=== PATIENT | male | born 1975 | race Caucasian/White ===

== ENCOUNTER → 2018-08-13 09:08 | Outpatient (CLI) | payer OTHER, SELFPAY ==
[2018-08-13 09:30] LABS: Add Manual Diff / Slide Review NO; Basophils Absolute Auto 0 /uL (0-100); Basophils Percent Auto 0.3 % (0-2); Eosinophils Absolute Auto 100 /uL (0-450); Eosinophils Percent Auto 1.6 % (2-4); Hematocrit 48.8 % (41-53); Hemoglobin 16.7 g/dL (13.5-17.5); Lymphocytes Absolute Auto 1400 /uL (1100-4500); Lymphocytes Percent Auto 27.8 % (25-40); Mean Corpuscular HGB Conc 34.2 % (30-36); Mean Corpuscular Hemoglobin 32.2 PG (26-34); Mean Corpuscular Volume 94.3 fL (80-100); Monocytes Absolute Auto 600 /uL (0-900); Monocytes Percent Auto 11.6 % (3-14); Neutrophils Absolute Auto 3000 /uL (1500-7000); Neutrophils Percent Auto 58.7 % (50-75); Platelet Count 283 X10^3/uL (150-400); Red Blood Cell Count 5.18 X10^6/uL (4.5-5.9); Red Cell Distribution Width 13.3 % (11.6-14.8); White Blood Cell Count 5.2 X10^3/uL (4.5-11.0)
[2018-08-13 10:08] LABS: Alanine Aminotransferase 34 IU/L (21-72); Albumin 4.3 g/dL (3.5-5.0); Albumin Globulin Ratio 1.4 (1.0-2.8); Alkaline Phosphatase 57 U/L (38-126); Aspartate Aminotransferase 26 IU/L (17-59); BUN Creatinine Ratio 13.6 (6-22); Bilirubin Total 1.1 mg/dL (0.2-1.3); Blood Urea Nitrogen 15 mg/dL (9-20); Calcium 9.1 mg/dL (8.4-10.2); Carbon Dioxide 28 mmol/L (22-32); Chloride 100 mmol/L (98-107); Cholesterol 138 mg/dL (140-199); Estimated Glomerular Filt Rate > 60.0 mL/min (>60); Glucose 101 mg/dL (70-100); HDL Cholesterol 41 mg/dL (40-60); HEMOLYSIS < 15 (0-50); LDL Cholesterol Calculated 46 mg/dL (<100); Potassium 4.1 mmol/L (3.4-5.1); Sodium 136 mmol/L (137-145); Total Protein 7.3 g/dL (6.3-8.2); Triglycerides 256 mg/dL (35-150)
== END ==
PROVIDERS: PCP Family Medicine; Visit Provider Family Medicine
DX: Z79.899 Other long term (current) drug therapy (principal); Z13.220 Encounter for screening for lipoid disorders; F90.0 Attention-deficit hyperactivity disorder, predominantly inattentive type
CPT/HCPCS: 36415; 80053; 80061; 85025

== ENCOUNTER 2018-08-21 19:30 | Emergency (ER) | payer OTHER, SELFPAY ==
--- NOTE | 2018-08-21 19:37 | ED.ALLEREA ---
HPI - Allergic Reaction General Chief complaint: Allergic Reaction Stated complaint: airway problem Time Seen by Provider: 08/21/18 19:34 Source: patient Mode of arrival: ambulatory Limitations: no limitations History of Present Illness HPI narrative: Patient is an otherwise healthy 42-year-old male here for evaluation of swelling to the back of his throat problems breathing. No rashes. No nausea vomiting. No new contacts. Has progressed over the past several hours. No prior history of this. Related Data Home Medications Medication Instructions Recorded Confirmed dextroamphetamine-amphetamine 20 mg PO QDAY #0 01/04/12 Previous Rx's Medication Instructions Recorded epinephrine [EpiPen 2-Morgan] 0.3 mg IM Q10M PRN #2 each 08/21/18 prednisone 40 mg PO DAILY 5 Days #10 tab 08/21/18 Allergies Allergy/AdvReac Type Severity Reaction Status Date / Time No Known Drug Allergies Allergy Verified 08/21/18 19:39 Review of Systems Constitutional Denies fatigue, Denies fever(s) and Denies headache(s) ENT Ears, Nose, Mouth, and Throat: Denies vertigo, Denies dizziness, Denies headache(s), Denies lip swelling, Denies mouth pain, Reports sore throat, Reports throat swelling and Denies tongue swelling Cardiovascular Denies chest pain and Reports dyspnea Respiratory Reports dyspnea and Denies wheezing Gastrointestinal Gastrointestinal: Denies nausea and Denies vomiting Integumentary/Breasts Denies rash Neurologic Denies behavioral changes, Denies vertigo, Denies dizziness and Denies headache(s) Psychiatric Denies behavioral changes Endocrine Denies fatigue Hematologic/Lymphatic Denies easy bleeding and Denies easy bruising Allergic/Immunologic Denies urticaria, Denies lip swelling, Reports throat swelling, Denies tongue swelling and Denies wheezing FORMERLY [facility], [facility] Medical History Healthy adult (Acute) Social History lives independently: Yes Social History lives independently: Yes Exam Initial Vital Signs Initial Vital Signs: Vital Signs Pulse Rate 103 H 08/21/18 19:40 Respiratory Rate 16 08/21/18 19:40 Blood Pressure 134/87 08/21/18 19:40 Pulse Oximetry 98 08/21/18 19:40 Const General: comfortable, well developed, well groomed and No acute distress Orientation: alert, awake and oriented x3 HENMT Head: normal to inspection and normocephalic Nose: external nose normal Face and sinus: normal facial exam Mouth: oral mucosae normal and lip normal Teeth and gingiva: dentition normal Throat: uvula midline, posterior oropharynx abnormal, uvula not displaced and uvular edema Resp Effort & Inspection: normal respiratory effort Auscultation: clear to auscultation bilaterally Cardio Rate: regular rate Rhythm: regular rhythm Skin Lesions: no lesions Rashes: no rashes Neuro General: alert, awake and oriented x3 Speech: speech normal Extrem General: capillary refill normal Psych Appearance: grossly normal and well kempt Course Orders Ordered: ED Orders 08/21/18 21:15 Complete Blood Count AUTO DIFF Stat 08/21/18 22:00 Basic Metabolic Panel Stat Discontinued Medications Diphenhydramine HCl (Benadryl) 25 mg IV NOW ONE Stop: 08/21/18 19:36 Last Admin: 08/21/18 19:40 Dose: 25 mg Epinephrine HCl (Epipen) 0.3 mg IM NOW ONE Stop: 08/21/18 19:36 Last Admin: 08/21/18 19:41 Dose: Not Given Epinephrine HCl (Adrenalin) 0.3 mg IM NOW ONE Stop: 08/21/18 19:43 Last Admin: 08/21/18 19:45 Dose: 0.3 mg Sodium Chloride (Normal Saline 0.9%) 1,000 mls @ 125 mls/hr IV CONT HAVEN Last Infusion: 08/21/18 20:24 Dose: 0 mls/hr Admin: 08/21/18 19:41 Dose: 125 mls/hr Famotidine (Pepcid) 20 mg in 50 mls @ 200 mls/hr IV NOW ONE Stop: 08/21/18 19:49 Last Infusion: 08/21/18 20:24 Dose: 0 mls/hr Admin: 08/21/18 19:41 Dose: 200 mls/hr Methylprednisolone (Solu-Medrol 125 Mg Vial) 125 mg IV NOW ONE Stop: 08/21/18 19:36 Last Admin: 08/21/18 19:40 Dose: 125 mg Vital Signs - 8 hr 08/21/18 19:40 08/21/18 19:50 08/21/18 20:00 Pulse Rate 103 H 116 H 105 H Respiratory Rate 16 27 H 18 Blood Pressure 134/87 Blood Pressure [Left Arm] 129/88 Pulse Oximetry 98 97 97 08/21/18 21:00 08/21/18 21:45 08/21/18 23:45 Pulse Rate 93 H 99 H 90 Respiratory Rate 17 19 Blood Pressure 133/98 H Blood Pressure [Left Arm] 125/87 116/83 Pulse Oximetry 95 96 MDM - Allergic Reaction Lab Data Attestation: I reviewed the patient's lab results. Result diagrams: 08/21/18 21:15 08/21/18 22:00 Lab Results 08/21/18 08/21/18 Range/Units 21:15 22:00 WBC 5.5 (4.5-11.0) X10^3/uL RBC 5.19 (4.5-5.9) X10^6/uL Hgb 16.7 (13.5-17.5) g/dL Hct 49.3 (41-53) % MCV 94.9 (80-100) fL MCH 32.1 (26-34) PG MCHC 33.9 (30-36) % RDW 13.1 (11.6-14.8) % Plt Count 296 (150-400) X10^3/uL Neut % (Auto) 77.0 H (50-75) % Lymph % (Auto) 18.8 L (25-40) % [place] % (Auto) 3.4 (3-14) % Eos % (Auto) 0.6 L (2-4) % Baso % (Auto) 0.2 (0-2) % Neut # (Auto) 4200 (4104-9697) /uL Lymph # (Auto) 1000 L (9031-6444) /uL [place] # (Auto) 200 (0-900) /uL Eos # (Auto) 0 (0-450) /uL Baso # (Auto) 0 (0-100) /uL Sodium 145 (137-145) mmol/L Potassium 4.5 (3.4-5.1) mmol/L Chloride 109 H (98-107) mmol/L Carbon Dioxide 23 (22-32) mmol/L BUN 9 (9-20) mg/dL Creatinine 0.90 (0.66-1.25) mg/dL Estimated GFR > 60.0 (>60) mL/min BUN/Creatinine Ratio 10.0 (6-22) Glucose 99 (70-100) mg/dL Calcium 9.0 (8.4-10.2) mg/dL Point of Care Testing Rapid Strep A Negative MDM Narrative Medical decision making narrative: Patient no new exposures. Does have edema of the uvula and some problems breathing. No rashes. No nausea or vomiting. He was given Benadryl and Solu-Medrol and epi. He was observed here in the emergency department for 4 hr after the epinephrine. He had still had some edema however clinically it seemed to have improved and patient reports improvement. No signs of infection. No indication for antibiotics. Will send home with prescription for antibiotics in next couple days. He was given return precautions. He expressed understanding and agreement with plan. Discharge Plan Departure Patient Disposition: Home Clinical Impression: Swollen uvula Discharge Date/Time: 08/21/18 23:57 Interventions: ED Discharge Assessment Last Done: 08/21/18 23:45 Instructions: DI for General Allergic Reactions Activity Restrictions/Additional Instructions: I recommend you take the steroids as directed starting on 08/22/18. Contact your primary care doctor for a follow-up. Return to the emergency department for any new or worsening symptoms Prescriptions: New prednisone 20 mg tablet 40 mg PO DAILY 5 Days Qty: 10 RF: 0 epinephrine [EpiPen 2-Morgan] 0.3 mg/0.3 mL auto-injector 0.3 mg IM Q10M PRN (Reason: hypersensitivity reaction) Qty: 2 RF: 0 No Action dextroamphetamine-amphetamine 20 MG capsule,extended release 24hr 20 mg PO QDAY Qty: 0 RF: 0 Referrals: Edgardo Reed MD [Primary Care Provider] -
[2018-08-21 19:40] VITALS: BP 134/87; PULSE 103; RESP 16; O2SAT 98
[2018-08-21] MEDS: diphenhydrAMINE 50 MG/ML VIAL 25 MG IV (19:40)
[2018-08-21] MEDS: methylPREDNISolone 125 MG/2 ML VIAL IV (19:40)
[2018-08-21] MEDS: SODIUM CHLORIDE 0.9% 1,000 ML 125 ML IV (19:41)
[2018-08-21] MEDS: FAMOTIDINE 20 MG/50 ML PIGGYBACK 200 MG IV (19:41)
[2018-08-21] MEDS: EPINEPHrine 1 MG/ML AMPUL 0.3 MG IM (19:45)
[2018-08-21 19:50] VITALS: PULSE 116; RESP 27; O2SAT 97
[2018-08-21 20:00] VITALS: BP 129/88; PULSE 105; RESP 18; O2SAT 97
[2018-08-21 21:00] VITALS: BP 125/87; PULSE 93; RESP 17; O2SAT 95
[2018-08-21 21:42] LABS: Add Manual Diff / Slide Review NO; Basophils Absolute Auto 0 /uL (0-100); Basophils Percent Auto 0.2 % (0-2); Eosinophils Absolute Auto 0 /uL (0-450); Eosinophils Percent Auto 0.6 % (2-4); Hematocrit 49.3 % (41-53); Hemoglobin 16.7 g/dL (13.5-17.5); Lymphocytes Absolute Auto 1000 /uL (1100-4500); Lymphocytes Percent Auto 18.8 % (25-40); Mean Corpuscular HGB Conc 33.9 % (30-36); Mean Corpuscular Hemoglobin 32.1 PG (26-34); Mean Corpuscular Volume 94.9 fL (80-100); Monocytes Absolute Auto 200 /uL (0-900); Monocytes Percent Auto 3.4 % (3-14); Neutrophils Absolute Auto 4200 /uL (1500-7000); Platelet Count 296 X10^3/uL (150-400); Red Blood Cell Count 5.19 X10^6/uL (4.5-5.9); Red Cell Distribution Width 13.1 % (11.6-14.8); White Blood Cell Count 5.5 X10^3/uL (4.5-11.0)
[2018-08-21 21:45] VITALS: BP 116/83; PULSE 99; RESP 19
[2018-08-21 22:17] LABS: Blood Urea Nitrogen 9 mg/dL (9-20); Carbon Dioxide 23 mmol/L (22-32); Chloride 109 mmol/L (98-107); Estimated Glomerular Filt Rate > 60.0 mL/min (>60); Glucose 99 mg/dL (70-100); HEMOLYSIS < 15 (0-50); Potassium 4.5 mmol/L (3.4-5.1); Sodium 145 mmol/L (137-145)
[2018-08-21 23:45] VITALS: BP 133/98; PULSE 90; O2SAT 96
== END 2018-08-21 23:57 | disposition home or self-care (01) ==
PROVIDERS: Emergency Provider Emergency Medicine; PCP Family Medicine
DX: R22.1 Localized swelling, mass and lump, neck (principal)
CPT/HCPCS: 80048; 85025; 87880; 96365; 96375; 99283; 99284; J0171; J1200; J2930

== ENCOUNTER → 2023-05-08 09:17 | Outpatient (CLI) | payer OTHER, SELFPAY | PROVIDERS: Referring Provider Family Medicine; Visit Provider Family Medicine | DX: Z23 Encounter for immunization (principal) | CPT/HCPCS: 90471; 90686 ==

== ENCOUNTER → 2024-03-18 13:42 | Outpatient (CLI) | payer OTHER, SELFPAY | PROVIDERS: Referring Provider Internal Medicine; Visit Provider Internal Medicine | DX: Z23 Encounter for immunization (principal) | CPT/HCPCS: 90471; 90656 ==